=== PATIENT | male | born 2000 | race Two or more races ===

== ENCOUNTER 2022-02-04 23:43 | Emergency (ER) | payer OTHER ==
[~2022-02-04] VITALS: Ht 180.3 cm; Wt 88.5 kg
[2022-02-05] MEDS ORDERED: KETO10TA2 PO (02:53)
== END 2022-02-05 03:17 ==
LOC: ER 23:43
DX: S76.311A Strain of muscle, fascia and tendon of the posterior muscle group at thigh level, right thigh, initial encounter (principal); X58.XXXA Exposure to other specified factors, initial encounter; Y93.67 Activity, basketball; Y92.214 College as the place of occurrence of the external cause